=== PATIENT | female | born 1995 | race Caucasian/White ===

== ENCOUNTER 2024-02-25 11:43 | Emergency (ER) | payer SELFPAY ==
[~2024-02-25] VITALS: Ht 162.6 cm; Wt 95.2 kg
[2024-02-25 11:57] VITALS: O2SAT 98
[2024-02-25 13:12] LABS: CHLORIDE 109 mEq/L (98-107); POTASSIUM 3.7 mEq/L (3.5-5.1); SODIUM 142 mEq/L (136-145)
[2024-02-25 13:13] LABS: CALCIUM 9.3 mg/dL (8.7-10.4); CARBON DIOXIDE 28 mEq/L (21-32)
[2024-02-25 13:18] LABS: CREATININE 0.8 mg/dL (0.6-1.0); GLUCOSE 118 mg/dL (70-105); UREA NITROGEN BLOOD 10 mg/dL (9-23)
[2024-02-25 13:20] LABS: ALANINE AMINOTRANSFERASE 21 IU/L (10-49); ALBUMIN 4.5 g/dL (3.2-4.8); ASPARTATE AMINOTRANSFERASE 22 IU/L (<34); BASOPHILS % 0.8 % (0.0-2.0); BILIRUBIN TOTAL 0.2 mg/dL (0.1-1.0); EOSINOPHILS % 4.4 % (0.0-5.0); HEMOGLOBIN. 13.6 g/dL (12.0-16.0); LYMPHOCYTES % 27.8 % (20.0-50.0); MEAN CORPUSCULAR HGB CONC 32.4 g/dL (31.0-37.0); MEAN CORPUSCULAR VOLUME 80.2 fL (81.0-99.0); PLATELET 314 x1000/uL (130-400); PROTEIN TOTAL 7.7 g/dL (6.0-8.3); RED BLOOD CELL COUNT 5.24 mill/uL (4.2-5.4); RED CELL DISTRIBUTION WIDTH 14.8 % (11.6-14.6); WHITE BLOOD COUNT 6.3 x1000/uL (4.5-11.0)
[2024-02-25 13:26] LABS: BILIRUBIN DIRECT < 0.1 mg/dL (<=3.0)
[2024-02-25] MEDS: ONDANSETRON 4MG ODT PO NR (13:58)
[2024-02-25] MEDS: FAMOTIDINE 20MG TABLET PO NR (13:59)
[2024-02-25 15:16] LABS: CLARITY URINE CLOUDY (CLEAR); COLOR URINE YELLOW (YELLOW); GLUCOSE URINE NEGATIVE (NEGATIVE); KETONES URINE NEGATIVE (NEGATIVE); LEUKOCYTE ESTERASE URINE 1+ (NEGATIVE); NITRITE URINE NEGATIVE (NEGATIVE); OCCULT BLOOD URINE NEGATIVE (NEGATIVE); PH URINE 6.5 (4.5-8.0); PROTEIN URINE TRACE (NEGATIVE); SPECIFIC GRAVITY URINE 1.023 (1.005-1.030); UROBILINOGEN URINE 0.2 E.U./dL (0.2-1.0)
[2024-02-25 15:30] LABS: SQUAMOUS EPITHELIAL CELL URINE 3+ /lpf (RARE/1+)
[2024-02-25 15:31] LABS: BACTERIA URINE 1+; MUCUS URINE 1+ /lpf (< = 2+)
[2024-02-25 15:32] LABS: RBC URINE NONE SEEN /hpf (0-2)
[2024-02-25] MEDS ORDERED: FAMO-135 MT (15:45)
[2024-02-25] MEDS ORDERED: ONDA-239 PO (15:45)
[2024-02-25 15:49] VITALS: BP 128/68; PULSE 87; RESP 16; TEMP 36.72516; O2SAT 98
== END 2024-02-25 15:49 | disposition home or self-care (01) ==
LOC: ER 11:59
DX: K29.70 Gastritis, unspecified, without bleeding (principal); K52.9 Noninfective gastroenteritis and colitis, unspecified
CPT/HCPCS: 99283; 80076; 80048; 81003; 85025; 86850; 86900; 86901; 36415; Q0162